=== PATIENT | male | born 1950 | race Hispanic/Latino ===

== ENCOUNTER 2017-01-14 07:44 | Day surgery (SDC) | payer MEDICARE, BC ==
[2015-09-06 10:45] VITALS: BMI 30.7
[2017-01-14] MEDS ORDERED: Propofol 10 mg/ml Inj (20 ML) ONE (08:53)
[2017-01-14] MEDS ORDERED: Sodium Chloride 0.9% 1,000 ML IV SCH (09:30)
[2017-01-14 09:58] VITALS: RESP 16
[2017-01-14 10:30] VITALS: BP 123/79; PULSE 56; TEMP 97.6; O2SAT 95
== END 2017-01-14 10:50 | disposition home or self-care (01) ==
LOC: ENDO 07:44
PROVIDERS: ATTEND Internal Medicine
DX: Z12.11 Encounter for screening for malignant neoplasm of colon (principal); D12.2 Benign neoplasm of ascending colon; D12.4 Benign neoplasm of descending colon; K62.1 Rectal polyp; K57.30 Diverticulosis of large intestine without perforation or abscess without bleeding; K64.8 Other hemorrhoids

== ENCOUNTER 2017-12-28 19:52 | Emergency (ER) | payer MEDICARE, BC ==
[2017-12-28 19:52] VITALS: BMI 30.7
[2017-12-28 20:50] VITALS: RESP 18; TEMP 98.5
--- NOTE | 2017-12-28 21:02 | ED PDOC ---
Arrival/HPI - General Chief Complaint: Alcohol Ingestion Time Seen by Provider: 12/28/17 19:59 Historian: Patient, EMS - History of Present Illness Narrative History of Present Illness (Text): 12/28/17 21:01 A 67 year old male, whose past medical history includes , presents to the emergency department brought in by EMS for public intoxication. Patient admits to drinking tonight stating he has been to various bars and is unable to make it home. Patient reports he is feeling fine and denies any fever, chills, chest pain, shortness of breath, nausea, vomiting, diarrhea, urinary symptoms, back pain, neck pain, headache, dizziness, or any other complaints. Time/Duration: 4-6 hours (Earlier tonight) Symptom Onset: Gradual Symptom Course: Improving Activities at Onset: Light Context: Street Past Medical History - Provider Review Nursing Documentation Reviewed: Yes - Infectious Disease Hx of Infectious Diseases: None - Tetanus Immunization Tetanus Immunization: Unknown - Cardiac Hx Cardiac Disorders: No - Pulmonary Hx Respiratory Disorders: No - Neurological Hx Neurological Disorder: Yes Hx Seizures: Yes - HEENT Hx HEENT Disorder: No - Renal Hx Renal Disorder: No - Endocrine/Metabolic Hx Endocrine Disorders: No - Hematological/Oncological Hx Blood Disorders: No - Integumentary Hx Dermatological Disorder: No - Musculoskeletal/Rheumatological Hx Musculoskeletal Disorders: No - Gastrointestinal Hx Gastrointestinal Disorders: No - Genitourinary/Gynecological Hx Genitourinary Disorders: No - Psychiatric Hx Psychophysiologic Disorder: Yes Hx Physical Abuse: No Hx Substance Use: Yes (COCAINE) - Surgical History Hx Orthopedic Surgery: Yes (knees) Other/Comment: brain surgery - Anesthesia Hx Anesthesia Reactions: No Hx Malignant Hyperthermia: No - Suicidal Assessment Feels Threatened In Home Enviroment: No Family/Social History - Physician Review Nursing Documentation Reviewed: Yes Family/Social History: Unknown Family HX Smoking Status: Never Smoked Hx Alcohol Use: Yes (COUPLE GLASSES WINE PER DAY) Hx Substance Use: Yes (COCAINE) Hx Substance Use Treatment: No Allergies/Home Meds Allergies/Adverse Reactions: Allergies No Known Allergies Allergy (Verified 12/28/17 20:24) Home Medications: Home Meds Medication Instructions Recorded Confirmed Oxcarbazepine [Trileptal] 1,200 mg PO BID 06/25/12 12/28/17 Quetiapine Fumarate [Seroquel] 150 mg PO QPM 06/25/12 12/28/17 Review of Systems - Physician Review All systems were reviewed & negative as marked: Yes - Review of Systems Constitutional: absent: Fevers, Night Sweats Respiratory: absent: SOB Cardiovascular: absent: Chest Pain Gastrointestinal: absent: Diarrhea, Nausea, Vomiting Genitourinary Male: absent: Urinary Output Changes Musculoskeletal: absent: Back Pain, Neck Pain Neurological: absent: Headache, Dizziness Physical Exam Vital Signs Reviewed: Yes Vital Signs Temp Pulse Resp BP Pulse Ox 12/28/17 20:49 98.5 F 79 18 129/78 95 Temperature: Afebrile Blood Pressure: Normal Pulse: Regular Respiratory Rate: Normal Appearance: Positive for: Well-Appearing, Comfortable, Other (Mildly inebriated) Pain Distress: None Mental Status: Positive for: Alert and Oriented X 3 - Systems Exam Head: Present: Atraumatic, Normocephalic Pupils: Present: PERRL Extroacular Muscles: Present: EOMI Conjunctiva: Present: Normal Mouth: Present: Moist Mucous Membranes Neck: Present: Normal Range of Motion Respiratory/Chest: Present: Clear to Auscultation, Good Air Exchange. No: Respiratory Distress, Accessory Muscle Use Cardiovascular: Present: Regular Rate and Rhythm, Normal S1, S2. No: Murmurs Abdomen: No: Tenderness, Distention, Peritoneal Signs Back: Present: Normal Inspection Upper Extremity: Present: Normal Inspection. No: Cyanosis, Edema Lower Extremity: Present: Normal Inspection. No: Edema Neurological: Present: GCS=15, CN II-XII Intact, Speech Normal Skin: Present: Warm, Dry, Normal Color. No: Rashes Psychiatric: Present: Alert, Oriented x 3, Normal Insight, Normal Concentration Medical Decision Making ED Course and Treatment: 12/28/17 21:15 Impression: 67 year old male presenting to the Emergency Department brought in by EMS for public intoxication. Plan: -- Reassess and disposition Prior Visits: Notes and results from previous visits were reviewed. Progress Notes: 12/29/17 06:35 Patient awake alert sober with steady gait in ED. - Scribe Statement The provider has reviewed the documentation as recorded by the Scribe Janna Fitzpatrick All medical record entries made by the Scribe were at my direction and personally dictated by me. I have reviewed the chart and agree that the record accurately reflects my personal performance of the history, physical exam, medical decision making, and the department course for this patient. I have also personally directed, reviewed, and agree with the discharge instructions and disposition. Disposition/Present on Arrival - Present on Arrival Any Indicators Present on Arrival: No History of DVT/PE: No History of Uncontrolled Diabetes: No Urinary Catheter: No History of Decub. Ulcer: No History Surgical Site Infection Following: None - Disposition Have Diagnosis and Disposition been Completed?: Yes Diagnosis: Alcohol intoxication Disposition: HOME/ ROUTINE Disposition Time: 06:46 Condition: GOOD Discharge Instructions (ExitCare): Alcohol Abuse and Alcoholism (DC) Referrals: Alcoholics Anonymous [Outside] - Follow up with primary Forms: [employer] (Lithuanian)
[2017-12-29 07:17] VITALS: BP 130/85; PULSE 70; O2SAT 98
== END 2017-12-29 07:18 | disposition home or self-care (01) ==
LOC: ED 19:52
DX: F10.129 Alcohol abuse with intoxication, unspecified (principal)